=== PATIENT | female | born 1995 | race Caucasian/White ===

== ENCOUNTER → 2018-11-22 15:07 | Outpatient (CLI) | payer BC, SELFPAY ==
--- NOTE | 2018-11-22 | DI.US.S_ITS ---
PROCEDURE: US PELVIC COMPLETE INDICATIONS: LEFT LOWER QUADRANT PAIN TECHNIQUE: Real-time scanning was performed of the pelvic organs, with image documentation. Additional endovaginal scanning was necessary due to incomplete visualization of the adnexal and endometrial structures by transabdominal scanning. COMPARISON: None. FINDINGS: Transabdominal scanning: Limited scanning through the kidneys shows no hydronephrosis. No pathologic free abdominal or pelvic fluid. A small amount free fluid within the pelvis is felt to be physiologic. Endovaginal scanning: Uterus: Uterus is normal in size at 7.6 x 3.8 x 5.1 cm cm. The endometrium measures 6 mm in combined thickness. The cervix is within normal limits. No focal myometrial lesions are evident. An intrauterine contraceptive device is positioned within the endometrial cavity, which appears to be in appropriate position. Ovaries: The right ovary is borderline enlarged and measures 3.2 x 2.0 x 2.6 cm. A dominant follicle is identified measuring up to 1.2 cm. The left ovary was not definitely seen. However, within the left adnexa there is a large cystic structure measuring up to 6.7 cm in diameter without definite internal vascularity. A thick walled on the periphery of the structure is evident with peripheral vascularity demonstrated. IMPRESSION: 1. Probable hemorrhagic left ovarian cyst. Followup imaging in 2-3 months is recommended to document resolution. 2. Unremarkable uterus and right ovary. 3. Normal positioning of the intrauterine contraceptive device. Dictated by: Anjel Karimi M.D. on 11/22/2018 at 15:49 Approved by: Anjel Karimi M.D. on 11/22/2018 at 15:57
--- NOTE | 2018-11-22 | DI.US.S_ITS ---
PROCEDURE: US ABDOMEN COMPLETE INDICATIONS: LEFT LOWER QUADRANT PAIN TECHNIQUE: Real-time scanning was performed of the abdominal and retroperitoneal organs, with image documentation. COMPARISON: None. FINDINGS: Liver: Liver is normal in size and homogeneous in echotexture. Gallbladder: Multiple gallstones are present within the gallbladder. No definite gallbladder wall thickening is present. There is no pericholecystic fluid. Biliary ducts: Intrahepatic bile ducts are non-dilated. Extrahepatic bile duct caliber measures 4 mm. Normal is 6-7 mm or less in diameter, or 10 mm or less post-cholecystectomy. Pancreas: Visualized portions of the pancreas are sonographically normal. Spleen: Spleen is normal in size and homogeneous in echotexture. Kidneys: Kidneys are normal in size and echotexture. Right kidney measures 11.2 cm long; left kidney measures 11.8 cm long. No hydronephrosis or shadowing nephrolithiasis. No solid masses. Aorta: Visualized aorta is normal in caliber at less than 3 cm. Iliacs: Proximal common iliac arteries are normal in caliber at less than 2.5 cm. IVC: Intrahepatic inferior vena cava is patent. Miscellaneous: No free abdominal fluid. IMPRESSION: 1. Cholelithiasis without sonographic evidence of acute cholecystitis. 2. No hydronephrosis. Dictated by: Anjel Karimi M.D. on 11/22/2018 at 15:45 Approved by: Anjel Karimi M.D. on 11/22/2018 at 15:49
== END ==
PROVIDERS: PCP Family Medicine; Visit Provider Family Medicine
DX: R10.32 Left lower quadrant pain (principal); K80.20 Calculus of gallbladder without cholecystitis without obstruction
CPT/HCPCS: 76700; 76830; 76856